=== PATIENT | male | born 1985 | race Caucasian/White ===

== ENCOUNTER 2019-03-04 09:18 | Outpatient (REF) | payer BC, SELFPAY ==
[2019-03-04 13:12] LABS: ALT 32 U/L (16-63); AST 24 U/L (15-37); Alkaline Phosphatase 64 U/L (46-116); BUN 15 mg/dL (7-18); Bilirubin, Total 0.5 mg/dL (0.2-1.0); CREATININE 0.94 mg/dL (0.70-1.30); Calcium 8.9 mg/dL (8.5-10.1); Calculated LDL 166 mg/dL; Chloride 104 mmol/L (98-107); Cholesterol 229 mg/dL (50-200); Glucose 94 mg/dL (70-100); HDL Cholesterol 49 mg/dL (40-60); Potassium 4.4 mmol/L (3.5-5.1); Sodium 142 mmol/L (136-145); Total Protein 7.2 g/dL (6.4-8.2); Triglyceride 71 mg/dL (30-150)
== END 2019-03-04 09:38 ==
LOC: NCHCN 09:18
PROVIDERS: PCP Family Medicine; Visit Provider Family Medicine
DX: Z00.00 Encounter for general adult medical examination without abnormal findings (principal); F33.1 Major depressive disorder, recurrent, moderate; F51.04 Psychophysiologic insomnia; M25.50 Pain in unspecified joint; Z13.220 Encounter for screening for lipoid disorders
CPT/HCPCS: 80053; 80061

== ENCOUNTER 2020-03-08 19:20 | Outpatient (REF) | payer MEDICAID, SELFPAY ==
[2020-03-08 22:38] LABS: ALT 28 U/L (16-63); AST 18 U/L (15-37); Albumin 4.1 g/dL (3.4-5.0); Alkaline Phosphatase 63 U/L (46-116); Anion Gap 6.1 mmol/L (3-11); BUN 13 mg/dL (7-18); Bilirubin, Total 0.5 mg/dL (0.2-1.0); CO2 29.9 mmol/L (21.0-32.0); CREATININE 1.02 mg/dL (0.70-1.30); Calcium 8.9 mg/dL (8.5-10.1); Calculated LDL 178 mg/dL (<100); Chloride 103 mmol/L (98-107); Cholesterol 241 mg/dL (<200); Glucose 90 mg/dL (74-106); HDL Cholesterol 48 mg/dL (40-60); Potassium 4.6 mmol/L (3.5-5.1); Sodium 139 mmol/L (136-145); Total Protein 7.4 g/dL (6.4-8.2); Triglyceride 75 mg/dL (<150)
== END 2020-03-08 19:40 ==
LOC: NCHCN 19:20
PROVIDERS: PCP Family Medicine; Visit Provider Family Medicine
DX: Z00.00 Encounter for general adult medical examination without abnormal findings (principal)
CPT/HCPCS: 80053; 80061

== ENCOUNTER 2020-06-14 15:39 | Outpatient (REF) | payer MEDICAID, SELFPAY ==
[2020-06-14 22:19] LABS: ALT 33 U/L (16-63); AST 23 U/L (15-37); Alkaline Phosphatase 62 U/L (46-116); Anion Gap 7.4 mmol/L (3-11); BUN 14 mg/dL (7-18); Bilirubin, Total 0.3 mg/dL (0.2-1.0); CO2 28.6 mmol/L (21.0-32.0); CREATININE 0.9 mg/dL (0.70-1.30); Calcium 9.4 mg/dL (8.5-10.1); Calculated LDL 64 mg/dL (<100); Chloride 107 mmol/L (98-107); Cholesterol 112 mg/dL (<200); Glucose 87 mg/dL (74-106); HDL Cholesterol 42 mg/dL (40-60); Potassium 4.2 mmol/L (3.5-5.1); Sodium 143 mmol/L (136-145); Total Protein 6.9 g/dL (6.4-8.2); Triglyceride 34 mg/dL (<150)
[2020-06-14 22:43] LABS: Creatine Kinase 98 U/L (39-308)
== END 2020-06-14 15:40 | disposition home or self-care (01) ==
LOC: NCHCN 15:39
PROVIDERS: PCP Family Medicine; Visit Provider Family Medicine
DX: E78.5 Hyperlipidemia, unspecified (principal)
CPT/HCPCS: 80053; 80061; 82550

== ENCOUNTER 2021-03-08 17:00 | Outpatient (REF) | payer MEDICAID, SELFPAY ==
[2021-03-10 15:03] LABS: COVID-19 RT-PCR UVMMC Result Negative (Negative)
== END 2021-03-08 17:01 | disposition home or self-care (01) ==
LOC: NCHCN 17:00
PROVIDERS: PCP Family Medicine; Visit Provider Nurse Practitioner Family
DX: Z20.822 Contact with and (suspected) exposure to COVID-19 (principal)
CPT/HCPCS: U0003

== ENCOUNTER 2021-03-14 14:54 | Outpatient (REF) | payer MEDICAID, SELFPAY ==
[2021-03-14 22:08] LABS: HCT 47.6 % (40.0-50.0); HGB 15.7 g/dL (13.5-17.5); MCH 30.1 pg (27.0-33.0); MCV 91.2 fL (80-95); MPV 10.1 fL (8.0-11.0); Platelet Count 241 10^3/uL (130-400); RBC 5.22 10^6/uL (4.36-5.78); RDW 12.1 % (11.8-14.1); WBC 7.57 10^3/uL (4.4-10.8)
[2021-03-16 11:08] LABS: Lyme Ab w Rflx to Lyme Confirm Negative (Negative)
[2021-03-17 14:25] LABS: Anaplasma phagocytophilum Negative (Negative); B. miyamotoi PCR Negative (Negative); Babesia divergens/MO-1 Negative (Negative); Babesia duncani Negative (Negative); Babesia microti Negative (Negative); Ehrlichia chaffeensis Negative (Negative); Ehrlichia ewingii/canis Negative (Negative); Ehrlichia muris eauclairensis Negative (Negative)
== END 2021-03-14 14:55 | disposition home or self-care (01) ==
LOC: NCHCN 14:54
PROVIDERS: PCP Family Medicine; Visit Provider Family Medicine
DX: B34.8 Other viral infections of unspecified site (principal); M25.59 Pain in other specified joint
CPT/HCPCS: 85027; 87798; 86618

== ENCOUNTER 2021-03-18 09:42 | Outpatient (REF) | payer MEDICAID, SELFPAY ==
[2021-03-18 14:38] LABS: ESR 3 mm/hr (0-15)
[2021-03-18 21:55] LABS: Rheumatoid Factor <8.6 IU/mL (<12.0)
[2021-03-21 13:29] LABS: ANA Interpretation Negative (Negative)
== END 2021-03-18 09:43 | disposition home or self-care (01) ==
LOC: NCHCN 09:42
PROVIDERS: PCP Family Medicine; Visit Provider Family Medicine
DX: M25.59 Pain in other specified joint (principal)
CPT/HCPCS: 85652; 86038; 86431

== ENCOUNTER 2023-03-26 12:58 | Outpatient (REF) | payer BC, SELFPAY ==
[2023-03-26 15:23] LABS: ALT 33 U/L (16-63); AST 19 U/L (15-37); Alkaline Phosphatase 66 U/L (46-116); Anion Gap 5.2 mmol/L (3-11); BUN 9 mg/dL (7-18); Bilirubin, Total 0.6 mg/dL (0.2-1.0); CO2 30.8 mmol/L (21.0-32.0); CREATININE 0.9 mg/dL (0.70-1.30); Calcium 9.5 mg/dL (8.5-10.1); Calculated LDL 103 mg/dL (<100); Chloride 103 mmol/L (98-107); Cholesterol 167 mg/dL (<200); Estimated GFR 113.51 (mL/min/1.73m2); Glucose 95 mg/dL (74-106); HDL Cholesterol 51 mg/dL (40-60); Potassium 4.3 mmol/L (3.5-5.1); Sodium 139 mmol/L (136-145); Total Protein 7.5 g/dL (6.4-8.2); Triglyceride 69 mg/dL (<150)
== END 2023-03-26 12:59 | disposition home or self-care (01) ==
LOC: NCHCN 12:58
PROVIDERS: PCP Family Medicine; Visit Provider Family Medicine
DX: E78.5 Hyperlipidemia, unspecified (principal)
CPT/HCPCS: 80053; 80061

== ENCOUNTER 2024-04-18 15:26 | Outpatient (CLI) | payer BC, SELFPAY ==
[2024-04-18 15:39] LABS: Abs Immature Grans 0.02 10^3/uL (0.0-0.06); Absolute Basophil Count 0.07 10^3/uL (0.0-0.2); Absolute Eosinophil Count 0.31 10^3/uL (0.0-0.7); Absolute Lymphocyte Count 2.12 10^3/uL (1.2-3.4); Absolute Monocyte Count 0.52 10^3/uL (0.1-0.8); Absolute Neutrophil Count 4.77 10^3/uL (1.2-6.7); Basophils % 0.9 %; HCT 44.3 % (40.0-50.0); HGB 14.9 g/dL (13.5-17.5); Immature Grans % 0.3 %; Lymphocytes % 27.1 %; MCH 30.2 pg (27.0-33.0); MCHC 33.6 % (32.0-36.0); MCV 90 fL (80-95); MPV 9.1 fL (8.0-11.0); Monocytes % 6.7 %; Platelet Count 270 10^3/uL (130-400); RBC 4.94 10^6/uL (4.36-5.78); RDW 12.4 % (11.8-14.1); RDW-SD 40.8 fL; WBC 7.81 10^3/uL (4.4-10.8)
[2024-04-18 16:22] LABS: D-Dimer 214 ng/mlFEU (<500)
== END 2024-04-18 15:27 | disposition home or self-care (01) ==
LOC: LBO 15:29
PROVIDERS: PCP Family Medicine; Visit Provider Family Medicine
DX: G43.109 Migraine with aura, not intractable, without status migrainosus (principal)
CPT/HCPCS: 36415; 85025; 85379